=== PATIENT | female | born 1990 | race African-American/Black ===

== ENCOUNTER 2019-07-22 23:37 | Emergency (ER) | payer MEDICAID ==
[~2019-07-22] VITALS: Ht 149.9 cm; Wt 118.0 kg
[2019-07-22 23:39] VITALS: BP 117/74
== END 2019-07-23 02:43 | disposition left against medical advice (07) ==
LOC: ER 23:37
DX: F41.9 Anxiety disorder, unspecified (principal); Z53.21 Procedure and treatment not carried out due to patient leaving prior to being seen by health care provider